=== PATIENT | male | born 1965 | race African-American/Black ===

== ENCOUNTER 2017-10-30 11:31 | Inpatient (IN) | payer OTHER ==
[2017-10-30 11:51] VITALS: BMI 25.4
--- NOTE | 2017-10-30 14:10 | HP ---
CIWA Score - CIWA Score Nausea/Vomitin-No Nausea/No Vomiting Muscle Tremors: 4-Moderate,w/Arms Extend Anxiety: 4-Mod. Anxious/Guarded Agitation: 4-Moderately Restless Paroxysmal Sweats: 2 Orientation: 0-Oriented Tacttile Disturbances: 0-None Auditory Disturbances: 0-None Visual Disturbances: 0-None Headache: 0-None Present CIWA-Ar Total Score: 14 Admission ROS S - HPI Chief Complaint: ALCOHOL WITHDRAWAL SX Allergies/Adverse Reactions: Allergies Allergy/AdvReac Type Severity Reaction Status Date / Time No Known Allergies Allergy Verified 10/30/17 12:16 History of Present Illness: 52 Y/O AA/MALE WITH A HX OF ALCOHOL AND CRACK/COCAINE DEPENDENCE SEEKING DETOX TX. PT STATES HE CAME TO DETOX BECAUSE "I NEED HELP WITH MY ADDICTION". "IF I DON'T DRINK I GET A LOT OF ATTITUDES".PT HAS A HX OF HTN,DM,ASTHMA AND SCHIZOPHRENIA. PT STATES HE GOES TO [facility], [facility] OR [facility] FOR MEDICAL CARE AND GETS HIS MEDICATIONS FROM THE EMERGENCY ROOMS. PT STATES "IWAS TOLD BY [facility] TO GO [place] [address] [place] [address] FOR MY SCHIZOPHRENIA. I HAVEN'T MADE IT THERE YET". Exam Limitations: No Limitations, Clinical Condition - Ebola screening Have you traveled outside of the country in the last 21 days: No (N) Have you had contact with anyone from an Ebola affected area: No Have you been sick,other than usual withdrawal symptoms: No Do you have a fever: No - Review of Systems Constitutional: Changes in sleep EENT: reports: Blurred Vision Respiratory: reports: Shortness of Breath, Wheezing Cardiac: reports: No Symptoms Reported GI: reports: No Symptoms Reported : reports: No Symptoms Reported Musculoskeletal: reports: No Symptoms Reported Integumentary: reports: No Symptoms Reported Neuro: reports: Headache Endocrine: reports: No Symptoms Reported Hematology: reports: No Symptoms Reported Psychiatric: reports: Orientated x3, Anxious, Depressed Other Systems: Reviewed and Negative Patient History - Patient Medical History Hx Anemia: No Hx Asthma: Yes (MDI) Hx Chronic Obstructive Pulmonary Disease (COPD): No Hx Cancer: No Hx Cardiac Disorders: No Hx Congestive Heart Failure: No Hx Hypertension: Yes (NON COMPLIANT- DENIES MEDS) Hx Hypercholesterolemia: No Hx Pacemaker: No HX Cerebrovascular Accident: No Hx Seizures: Yes (2YEARS AGO) Hx Dementia: No Hx Diabetes: Yes (FINGERSTICK 245mg/dL 10/817- ON METFORMIN DAILY) Hx Gastrointestinal Disorders: No Hx Liver Disease: No Hx Genitourinary Disorders: No Hx Sexually Transmitted Disorders: Yes (HX SYPHILIS WITH TX) Hx Renal Disease (ESRD): No Hx Thyroid Disease: No Hx Human Immunodeficiency Virus (HIV): No (NEGATIVE HX 2016) Hx Hepatitis C: No Hx Depression: Yes Hx Suicide Attempt: No (DENIES) Hx Schizophrenia: Yes - Patient Surgical History Past Surgical History: Yes Hx Neurologic Surgery: Yes (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) Hx Cataract Extraction: No Hx Cardiac Surgery: No Hx Lung Surgery: No Hx Breast Surgery: No Hx Breast Biopsy: No Hx Abdominal Surgery: Yes (SPLEENECTOMY AT 5 YRS OLD) Hx Appendectomy: No Hx Cholecystectomy: No Hx Genitourinary Surgery: No Hx Orthopedic Surgery: No Anesthesia Reaction: No - PPD History Previous Implant?: Yes Documented Results: Negative w/proof Date: 10/29/12 PPD to be Administered?: Yes - Reproductive History Patient is a Female of Child Bearing Age (11 -55 yrs old): No (MALE) Patient : No - Smoking Cessation Smoking history: Current every day smoker Have you smoked in the past 12 months: Yes Aproximately how many cigarettes per day: 20 Hx Chewing Tobacco Use: No Initiated information on smoking cessation: Yes 'Breaking Loose' booklet given: 10/30/17 - Substance & Tx. History Hx Alcohol Use: Yes (BACARDI) Hx Substance Use: Yes (CRACK/COCAINE) Substance Use Type: Alcohol, Cocaine Hx Substance Use Treatment: Yes (LAST TX AT [facility]) - Substances Abused Cocaine Route: Smoking Frequency: 3-6 times per week Amount used: $40 Age of first use: 19 Date of Last Use: 10/29/17 ETOH Route: Oral Frequency: Daily Amount used: 3 PINTS- vODKA, 1-2 bEERS Age of first use: 18 Date of Last Use: 10/29/17 Family Disease History - Family Disease History Family Disease History: Diabetes: Mother (), Other: Mother Admission Physical Exam BHS - Vital Signs Vital Signs: Vital Signs - 24 hr 10/30/17 11:48 Temperature 96 F L Pulse Rate 98 H Respiratory 16 Rate Blood Pressure 158/107 - Physical General Appearance: Yes: Moderate Distress, Irritable, Anxious, Other ( AGITATION AND SLEEPY ON OFF. 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, Fully Oriented, Alert, Motor Strength 5/5 Integumentary: Yes: Dry, Warm Lymphatic: Yes: Within Normal Limits - Diagnostic (1) Schizophrenia Current Visit: Yes Status: Chronic (2) Alcohol dependence with uncomplicated withdrawal Current Visit: Yes Status: Acute (3) Cocaine dependence, uncomplicated Current Visit: Yes Status: Acute (4) Asthma Current Visit: Yes Status: Chronic Qualifiers: Asthma severity: unspecified severity Asthma persistence: unspecified Asthma complication type: uncomplicated Qualified Code(s): J45.909 - Unspecified asthma, uncomplicated (5) Hx of seizure disorder Current Visit: Yes Status: Suspected (6) Hypertension Current Visit: Yes Status: Acute Qualifiers: Hypertension type: essential hypertension Qualified Code(s): I10 - Essential (primary) hypertension (7) Diabetes mellitus Current Visit: Yes Status: Acute Qualifiers: Diabetes mellitus type: type 2 (8) Status post brain surgery Current Visit: Yes Status: Resolved (9) S/P splenectomy Current Visit: Yes Status: Resolved Cleared for Admission [facility] - Detox or Rehab S Level of Care: Medically Managed Detox Regimen/Protocol: Librium S Breath Alcohol Content Breath Alcohol Content: 0 Urine Drug Screen - Results Drug Screen Negative: No Urine Drug Screen Results: ADARSH-Cocaine, TCA-Tricyclic Antidepress
[2017-10-30] MEDS ORDERED: P-EPHED 60MG/TRIPROLIDI 2.5MG TABLET PO PRN (14:34)
[2017-10-30] MEDS ORDERED: ACETAMINOPHEN 325 MG TABLET (FP) PO PRN (14:34)
[2017-10-30] MEDS ORDERED: MAGNESIUM CITRATE 300 ML BOTTLE PO PRN (14:34)
[2017-10-30] MEDS ORDERED: MENTHOL/PHENOL 1 EACH UD MM PRN (14:34)
[2017-10-30] MEDS ORDERED: NICOTINE POLACRILEX 4 MG GUM BUC PRN (14:34)
[2017-10-30] MEDS ORDERED: chlordiazePOXIDE HCL 25 MG CAPSULE PO PRN (14:34)
[2017-10-30] MEDS ORDERED: guaiFENesin/D-METHORPHAN HB 10 ML UNIT-DOSE CUPS PO PRN (14:34)
[2017-10-30] MEDS ORDERED: LOPERAMIDE HCL 2 MG CAPSULE PO PRN (14:34)
[2017-10-30] MEDS ORDERED: MAGNESIUM HYDROX 2400MG/30ML ORAL SUSPENSION 30 ML CUP PO PRN (14:34)
[2017-10-30] MEDS ORDERED: MAG HYDROX/AL HYDROX/SIMETH 30 ML UNIT-DOSE CUP PO PRN (14:34)
[2017-10-30] MEDS ORDERED: IBUPROFEN 400 MG TABLET (FP) PO PRN (14:34)
[2017-10-30] MEDS: LISINOPRIL 10 MG TABLET (FP) PO SCH (16:04)
[2017-10-30] MEDS: NICOTINE 21 MG/24 HOURS TOPICAL PATCH TD SCH (16:08)
--- NOTE | 2017-10-30 17:04 | CONSULT ---
[facility] Psychiatric Consult - Data Date of interview: 10/30/17 Admission source: [facility] Identifying data: Patient is a 52 year old single male, father of two, residing in a fpc, and supported by [facility] benefits. This is patient's first admission to detox at [facility]. Pt. admitted to for alcohol and cocaine dependence. Substance Abuse History: Smoking Cessation. Smoking history: Current every day smoker. Have you smoked in the past 12 months: Yes. Aproximately how many cigarettes per day: 20. Hx Chewing Tobacco Use: No. Initiated information on smoking cessation: Yes. 'Breaking Loose' booklet given: 10/30/17. - Substance & Tx. History. Hx Alcohol Use: Yes (BACARDI). Hx Substance Use: Yes (CRACK/ COCAINE). Substance Use Type: Alcohol, Cocaine. Hx Substance Use Treatment: Yes (LAST TX AT [facility]). - Substances Abused. Cocaine. Route: Smoking. Frequency: 3-6 times per week. Amount used: $40. Age of first use: 19. Date of Last Use: 10/29/17. ETOH. Route: Oral. Frequency: Daily. Amount used: 3 PINTS- vODKA, 1-2 bEERS. Age of first use: 18. Date of Last Use : 10/29/17 Medical History: Asthma, hypertension, seizures, diabetes, brain sx due to tumor in 2011- benign, Spleenectomy at 5 y/o Psychiatric History: Patient reports multiple psychiatric hospitalizations, most recently 2 months ago at [facility]. Pt. has also been hospitalized at [facility] and [facility]. Diagnosis of schizophrenia. Pt. denies OPD. States he is prescribed Seroquel 200mg qhs and gets his prescriptions from the emergency room at [facility]. [facility] called at [phone] and pharmacy staff able to confirm patient' s recent prescription of seroquel 200mg qhs on October 20. Patient denies h/o suicide attempt. Physical/Sexual Abuse/Trauma History: Denies. Mental Status Exam - Mental Status Exam Alert and Oriented to: Time, Place, Person Cognitive Function: Good Patient Appearance: Well Groomed Mood: Euthymic Affect: Mood Congruent Patient Behavior: Cooperative Speech Pattern: Appropriate Voice Loudness: Normal Thought Process: Intact, Goal Oriented Thought Disorder: Not Present Hallucinations: Denies Suicidal Ideation: Denies Homicidal Ideation: Denies Insight/Judgement: Poor Sleep: Poorly Appetite: Fair Muscle strength/Tone: Normal Gait/Station: Normal Psychiatric Findings - Problem List ([place] 1, 2,3) (1) Alcohol dependence with uncomplicated withdrawal Current Visit: Yes Status: Acute (2) Cocaine dependence, uncomplicated Current Visit: Yes Status: Acute (3) Schizophrenia Current Visit: Yes Status: Chronic (4) Substance induced mood disorder Current Visit: Yes Status: Acute - Initial Treatment Plan Initial Treatment Plan: Psychoeducation provided. Detoxification in progress. [facility] called at [phone] and pharmacy staff able to confirm patient's recent prescription of seroquel 200mg qhs on October 20. Will order Seroquel 200mg qhs. Benefits and side effects discussed. Verbal consent given.
[2017-10-30 17:48] LABS: URINE APPEARANCE CLEAR; URINE BILIRUBIN NEGATIVE (<2.0 mg/dL); URINE BLOOD NEGATIVE (NEGATIVE); URINE COLOR LTYELLOW; URINE GLUCOSE (UA) 1+ (NEGATIVE); URINE KETONE NEGATIVE (NEGATIVE); URINE LEUK ESTERASE NEGATIVE (NEGATIVE); URINE NITRITE NEGATIVE (NEGATIVE); URINE PROTEIN NEGATIVE (NEGATIVE); URINE UROBILINOGEN NEGATIVE mg/dL (0.2-1.0)
[2017-10-30] MEDS: chlordiazePOXIDE HCL 25 MG CAPSULE PO SCH ×2 (18:04→22:29)
[2017-10-30] MEDS: INSULIN SLIDING SCALE (NOVOLOG) 1 VIAL SQ SCH (18:18)
[2017-10-30] MEDS ORDERED: MELATONIN 5 MG TABLETS PO PRN (22:00)
[2017-10-30] MEDS: THIAMINE HCL 100 MG TABLET (FP) PO SCH (22:29)
[2017-10-30] MEDS: QUEtiapine FUMARATE 200 MG TABLET PO SCH (22:29)
[2017-10-31] MEDS: chlordiazePOXIDE HCL 25 MG CAPSULE PO SCH ×4 (06:06→23:19)
[2017-10-31] MEDS: metFORMIN HCL 500 MG TABLET (FP) PO SCH (06:07)
[2017-10-31] MEDS: INSULIN SLIDING SCALE (NOVOLOG) 1 VIAL SQ SCH ×2 (06:08→17:11)
[2017-10-31] MEDS: PRENATAL VITAMINS W/ FOLIC ACID TABLET (FP) PO SCH (10:39)
[2017-10-31] MEDS: LISINOPRIL 10 MG TABLET (FP) PO SCH (10:39)
[2017-10-31] MEDS: NICOTINE 21 MG/24 HOURS TOPICAL PATCH TD SCH (10:40)
[2017-10-31] MEDS: hydrOXYzine PAMOATE 50 MG CAPSULE (FP) PO PRN (10:40)
[2017-10-31 10:53] LABS: HEMATOCRIT 37.3 % (35.4-49); HEMOGLOBIN 12.1 GM/dL (11.7-16.9); MCH 28.3 pg (25.7-33.7); MCHC 32.5 g/dl (32.0-35.9); MEAN CELL VOLUME 87.3 fl (80-96); MEAN PLT VOLUME 8.7 fl (7.5-11.1); PLATELET COUNT 260 K/MM3 (134-434); RBC 4.27 M/mm3 (4.00-5.60); RDW 15.5 % (11.9-15.9); WHITE BLOOD COUNT 7.3 K/mm3 (4.0-10.0)
[2017-10-31 11:04] LABS: CHLORIDE 103 mmol/L (98-107); POTASSIUM 4.3 mmol/L (3.5-5.1); SODIUM 139 mmol/L (136-145)
[2017-10-31 11:25] LABS: ALBUMIN 3.5 g/dl (3.4-5.0); ALK PHOS 109 U/L (45-117); ANION GAP 7 (8-16); BILIRUBIN,TOTAL 0.3 mg/dL (0.2-1.0); BLOOD UREA NITROGEN 13 mg/dL (7-18); CO2 29 mmol/L (21-32); CREATININE 1.3 mg/dL (0.7-1.3); GLUCOSE,RANDOM 270 mg/dL (74-106); SGOT/AST 16 U/L (15-37); SGPT/ALT 29 U/L (12-78); TOT PROT 7.3 g/dl (6.4-8.2)
--- NOTE | 2017-10-31 11:34 | PN ---
S CIWA - CIWA Score Nausea/Vomitin Muscle Tremors: 3 Anxiety: 3 Agitation: 3 Paroxysmal Sweats: 1-Minimal Palms Moist Orientation: 0-Oriented Tacttile Disturbances: 1-Very Mild Itch/Numbness Auditory Disturbances: 1-Very Mild Visual Disturbances: 0-None Headache: 2-Mild CIWA-Ar Total Score: 17 S Progress Note (SOAP) Subjective: alert,irritable,anxious,interrupted sleep,tremor Objective: 10/31/17 11:30 Vital Signs Temperature 97.7 F 10/31/17 10:25 Pulse Rate 102 H 10/31/17 10:25 Respiratory Rate 16 10/31/17 10:25 Blood Pressure 143/93 10/31/17 10:25 O2 Sat by Pulse Oximetry (%) ekg nsr qt 400/484 no chest pain,no sob,no dizziness Laboratory Last Values WBC 7.3 K/mm3 (4.0-10.0) D 10/31/17 06:00 RBC 4.27 M/mm3 (4.00-5.60) 10/31/17 06:00 Hgb 12.1 GM/dL (11.7-16.9) 10/31/17 06:00 Hct 37.3 % (35.4-49) 10/31/17 06:00 MCV 87.3 fl (80-96) 10/31/17 06:00 MCH 28.3 pg (25.7-33.7) 10/31/17 06:00 MCHC 32.5 g/dl (32.0-35.9) 10/31/17 06:00 RDW 15.5 % (11.9-15.9) D 10/31/17 06:00 Plt Count 260 K/MM3 (134-434) 10/31/17 06:00 MPV 8.7 fl (7.5-11.1) 10/31/17 06:00 Sodium 139 mmol/L (136-145) 10/31/17 06:00 Potassium 4.3 mmol/L (3.5-5.1) 10/31/17 06:00 Chloride 103 mmol/L (98-107) 10/31/17 06:00 Carbon Dioxide 29 mmol/L (21-32) D 10/31/17 06:00 Anion Gap 7 (8-16) L 10/31/17 06:00 BUN 13 mg/dL (7-18) 10/31/17 06:00 Creatinine 1.3 mg/dL (0.7-1.3) D 10/31/17 06:00 Creat Clearance w eGFR 57.53 (>60) 10/31/17 06:00 POC Glucometer 194 UNITS (80-120) 10/31/17 05:31 Random Glucose 270 mg/dL (74-106) H D 10/31/17 06:00 Calcium 9.0 mg/dL (8.5-10.1) 10/31/17 06:00 Total Bilirubin 0.3 mg/dL (0.2-1.0) D 10/31/17 06:00 AST 16 U/L (15-37) D 10/31/17 06:00 ALT 29 U/L (12-78) D 10/31/17 06:00 Alkaline Phosphatase 109 U/L (45-117) 10/31/17 06:00 Total Protein 7.3 g/dl (6.4-8.2) 10/31/17 06:00 Albumin 3.5 g/dl (3.4-5.0) 10/31/17 06:00 Urine Color Ltyellow 10/30/17 17:20 Urine Appearance Clear 10/30/17 17:20 Urine pH 5.0 (5.0-8.0) 10/30/17 17:20 Ur Specific [place] 1.016 (1.001-1.035) 10/30/17 17:20 Urine Protein Negative (NEGATIVE) 10/30/17 17:20 Urine Glucose (UA) 1+ (NEGATIVE) H 10/30/17 17:20 Urine Ketones Negative (NEGATIVE) 10/30/17 17:20 Urine Blood Negative (NEGATIVE) 10/30/17 17:20 Urine Nitrite Negative (NEGATIVE) 10/30/17 17:20 Urine Bilirubin Negative (<2.0 mg/dL) 10/30/17 17:20 Urine Urobilinogen Negative mg/dL (0.2-1.0) 10/30/17 17:20 Ur Leukocyte Esterase Negative (NEGATIVE) 10/30/17 17:20 Assessment: 10/31/17 11:33 withdrawal symptom Plan: continue detox,bgm monitoring
[2017-10-31 12:16] LABS: SICKLE CELL SCREEN NEGATIVE (NEGATIVE)
--- NOTE | 2017-10-31 14:51 | EKG ---
Test Reason : Blood Pressure : / mmHG Vent. Rate : 088 BPM Atrial Rate : 088 BPM P-R Int : 168 ms QRS Dur : 094 ms QT Int : 400 ms P-R-T Axes : 071 030 049 degrees QTc Int : 484 ms NORMAL SINUS RHYTHM POSSIBLE LEFT ATRIAL ENLARGEMENT NONSPECIFIC T WAVE ABNORMALITY PROLONGED QT ABNORMAL ECG NO PREVIOUS ECGS AVAILABLE Confirmed by MD Torres Daniel ([id number]) on 10/31/2017 2:50:39 PM Referred By: Confirmed By:Jose Torres MD
[2017-10-31] MEDS ORDERED: INSULIN (NOVOLOG) ASPART 100 UNITS/ML 10ML VIAL ONE (17:05)
[2017-10-31] MEDS: THIAMINE HCL 100 MG TABLET (FP) PO SCH (23:19)
[2017-10-31] MEDS: QUEtiapine FUMARATE 200 MG TABLET PO SCH (23:19)
[2017-11-01] MEDS ORDERED: INSULIN (NOVOLOG) ASPART 100 UNITS/ML 10ML VIAL ONE ×2 (06:33→17:02)
[2017-11-01] MEDS: chlordiazePOXIDE HCL 25 MG CAPSULE PO SCH ×2 (06:35→10:18)
[2017-11-01] MEDS: metFORMIN HCL 500 MG TABLET (FP) PO SCH (06:35)
[2017-11-01] MEDS: INSULIN SLIDING SCALE (NOVOLOG) 1 VIAL SQ SCH ×2 (06:36→17:17)
[2017-11-01] MEDS: PRENATAL VITAMINS W/ FOLIC ACID TABLET (FP) PO SCH (10:18)
[2017-11-01] MEDS: NICOTINE 21 MG/24 HOURS TOPICAL PATCH TD SCH (10:18)
[2017-11-01] MEDS: hydrOXYzine PAMOATE 50 MG CAPSULE (FP) PO PRN (10:18)
[2017-11-01] MEDS: LISINOPRIL 10 MG TABLET (FP) PO SCH (10:18)
[2017-11-01 12:39] LABS: RPR REACTIVE 1:1 (NONREACTIVE)
[2017-11-01 12:47] LABS: TREPONEMA ANTIBODY REACTIVE (NONREACTIVE)
--- NOTE | 2017-11-01 13:47 | PN ---
S CIWA - CIWA Score Nausea/Vomitin-No Nausea/No Vomiting Muscle Tremors: 4-Moderate,w/Arms Extend Anxiety: 4-Mod. Anxious/Guarded Agitation: 3 Paroxysmal Sweats: 1-Minimal Palms Moist Orientation: 0-Oriented Tacttile Disturbances: 1-Very Mild Itch/Numbness Auditory Disturbances: 0-None Visual Disturbances: 0-None Headache: 0-None Present CIWA-Ar Total Score: 13 BHS Progress Note (SOAP) Subjective: sweat tremor anxiety restlessness irritable Objective: 11/01/17 13:48 Vital Signs Temperature 97.7 F 11/01/17 09:52 Pulse Rate 95 H 11/01/17 09:52 Respiratory Rate 18 11/01/17 09:52 Blood Pressure 150/90 11/01/17 09:52 O2 Sat by Pulse Oximetry (%) Laboratory Last Values WBC 7.3 K/mm3 (4.0-10.0) D 10/31/17 06:00 RBC 4.27 M/mm3 (4.00-5.60) 10/31/17 06:00 Hgb 12.1 GM/dL (11.7-16.9) 10/31/17 06:00 Hct 37.3 % (35.4-49) 10/31/17 06:00 MCV 87.3 fl (80-96) 10/31/17 06:00 MCH 28.3 pg (25.7-33.7) 10/31/17 06:00 MCHC 32.5 g/dl (32.0-35.9) 10/31/17 06:00 RDW 15.5 % (11.9-15.9) D 10/31/17 06:00 Plt Count 260 K/MM3 (134-434) 10/31/17 06:00 MPV 8.7 fl (7.5-11.1) 10/31/17 06:00 Sickle Cell Screen Negative (NEGATIVE) 10/31/17 06:00 Sodium 139 mmol/L (136-145) 10/31/17 06:00 Potassium 4.3 mmol/L (3.5-5.1) 10/31/17 06:00 Chloride 103 mmol/L (98-107) 10/31/17 06:00 Carbon Dioxide 29 mmol/L (21-32) D 10/31/17 06:00 Anion Gap 7 (8-16) L 10/31/17 06:00 BUN 13 mg/dL (7-18) 10/31/17 06:00 Creatinine 1.3 mg/dL (0.7-1.3) D 10/31/17 06:00 Creat Clearance w eGFR 57.53 (>60) 10/31/17 06:00 POC Glucometer 337 UNITS (80-120) 10/31/17 16:30 Random Glucose 270 mg/dL (74-106) H D 10/31/17 06:00 Calcium 9.0 mg/dL (8.5-10.1) 10/31/17 06:00 Total Bilirubin 0.3 mg/dL (0.2-1.0) D 10/31/17 06:00 AST 16 U/L (15-37) D 10/31/17 06:00 ALT 29 U/L (12-78) D 10/31/17 06:00 Alkaline Phosphatase 109 U/L (45-117) 10/31/17 06:00 Total Protein 7.3 g/dl (6.4-8.2) 10/31/17 06:00 Albumin 3.5 g/dl (3.4-5.0) 10/31/17 06:00 Urine Color Ltyellow 10/30/17 17:20 Urine Appearance Clear 10/30/17 17:20 Urine pH 5.0 (5.0-8.0) 10/30/17 17:20 Ur Specific [place] 1.016 (1.001-1.035) 10/30/17 17:20 Urine Protein Negative (NEGATIVE) 10/30/17 17:20 Urine Glucose (UA) 1+ (NEGATIVE) H 10/30/17 17:20 Urine Ketones Negative (NEGATIVE) 10/30/17 17:20 Urine Blood Negative (NEGATIVE) 10/30/17 17:20 Urine Nitrite Negative (NEGATIVE) 10/30/17 17:20 Urine Bilirubin Negative (<2.0 mg/dL) 10/30/17 17:20 Urine Urobilinogen Negative mg/dL (0.2-1.0) 10/30/17 17:20 Ur Leukocyte Esterase Negative (NEGATIVE) 10/30/17 17:20 RPR Titer Reactive 1:1 (NONREACTIVE) H 10/31/17 06:00 T.pallidum Ab (MHA) Reactive (NONREACTIVE) 10/31/17 06:00 lab noted Assessment: 11/01/17 13:49 withdrawal sx Plan: continue detox
[2017-11-01] MEDS: chlordiazePOXIDE 5 MG CAPSULE PO SCH ×2 (17:18→22:36)
[2017-11-01] MEDS: THIAMINE HCL 100 MG TABLET (FP) PO SCH (22:36)
[2017-11-01] MEDS: QUEtiapine FUMARATE 200 MG TABLET PO SCH (22:36)
[2017-11-02] MEDS: chlordiazePOXIDE 5 MG CAPSULE PO SCH ×2 (05:07→10:37)
[2017-11-02] MEDS: metFORMIN HCL 500 MG TABLET (FP) PO SCH (06:32)
[2017-11-02] MEDS: INSULIN SLIDING SCALE (NOVOLOG) 1 VIAL SQ SCH ×2 (07:25→16:35)
[2017-11-02] MEDS ORDERED: INSULIN (NOVOLOG) ASPART 100 UNITS/ML 10ML VIAL ONE (07:54)
[2017-11-02] MEDS: PRENATAL VITAMINS W/ FOLIC ACID TABLET (FP) PO SCH (10:37)
[2017-11-02] MEDS: LISINOPRIL 10 MG TABLET (FP) PO SCH (10:37)
[2017-11-02] MEDS: NICOTINE 21 MG/24 HOURS TOPICAL PATCH TD SCH (10:37)
--- NOTE | 2017-11-02 10:52 | PN ---
S Progress Note (SOAP) Subjective: alert,irritable,anxious,interrupted sleep Objective: 11/02/17 10:51 Vital Signs Temperature 97 F L 11/02/17 09:17 Pulse Rate 102 H 11/02/17 09:17 Respiratory Rate 16 11/02/17 09:17 Blood Pressure 151/95 11/02/17 09:17 O2 Sat by Pulse Oximetry (%) Assessment: 11/02/17 10:51 withdrawal symptom Plan: continue detox,discharge in am
[2017-11-02] MEDS: chlordiazePOXIDE HCL 10 MG CAPSULE PO SCH ×2 (17:53→22:37)
[2017-11-02] MEDS: THIAMINE HCL 100 MG TABLET (FP) PO SCH (22:36)
[2017-11-02] MEDS: QUEtiapine FUMARATE 200 MG TABLET PO SCH (22:37)
[2017-11-03] MEDS: chlordiazePOXIDE HCL 10 MG CAPSULE PO SCH (05:29)
[2017-11-03] MEDS: INSULIN SLIDING SCALE (NOVOLOG) 1 VIAL SQ SCH (06:55)
[2017-11-03] MEDS: metFORMIN HCL 500 MG TABLET (FP) PO SCH (06:55)
[2017-11-03] MEDS ORDERED: INSULIN (NOVOLOG) ASPART 100 UNITS/ML 10ML VIAL ONE (07:03)
--- NOTE | 2017-11-03 08:44 | PN ---
S Progress Note (SOAP) Subjective: alert,no complaint Objective: 11/03/17 08:41 Vital Signs Temperature 97.5 F L 11/03/17 06:00 Pulse Rate 89 11/03/17 06:00 Respiratory Rate 20 11/03/17 06:00 Blood Pressure 136/93 11/03/17 06:00 O2 Sat by Pulse Oximetry (%) Assessment: 11/03/17 08:41 detox completed,no withdrawal symptom Plan: discharge today,follow up with after care program as arrangement
--- NOTE | 2017-11-03 08:50 | DS ---
[facility] Detox Discharge Summary Admission Date: 10/30/17 Discharge Date: 11/03/17 - History Present History: Alcohol Dependence, Cocaine Dependence Additional Comments: follow up with after care program as arrangement Pertinent Past History: asthma hypertension dm s/p brain surgery s/p slenectomy schizophrenia seizure disorder - Physical Exam Results Vital Signs: Vital Signs Temperature 97.5 F L 11/03/17 06:00 Pulse Rate 89 11/03/17 06:00 Respiratory Rate 20 11/03/17 06:00 Blood Pressure 136/93 11/03/17 06:00 O2 Sat by Pulse Oximetry (%) Pertinent Admission Physical Exam Findings: withdrawal signs and symptom Vital Signs Temperature 97.5 F L 11/03/17 06:00 Pulse Rate 89 11/03/17 06:00 Respiratory Rate 20 11/03/17 06:00 Blood Pressure 136/93 11/03/17 06:00 O2 Sat by Pulse Oximetry (%) Laboratory Last Values WBC 7.3 K/mm3 (4.0-10.0) D 10/31/17 06:00 RBC 4.27 M/mm3 (4.00-5.60) 10/31/17 06:00 Hgb 12.1 GM/dL (11.7-16.9) 10/31/17 06:00 Hct 37.3 % (35.4-49) 10/31/17 06:00 MCV 87.3 fl (80-96) 10/31/17 06:00 MCH 28.3 pg (25.7-33.7) 10/31/17 06:00 MCHC 32.5 g/dl (32.0-35.9) 10/31/17 06:00 RDW 15.5 % (11.9-15.9) D 10/31/17 06:00 Plt Count 260 K/MM3 (134-434) 10/31/17 06:00 MPV 8.7 fl (7.5-11.1) 10/31/17 06:00 Sickle Cell Screen Negative (NEGATIVE) 10/31/17 06:00 Sodium 139 mmol/L (136-145) 10/31/17 06:00 Potassium 4.3 mmol/L (3.5-5.1) 10/31/17 06:00 Chloride 103 mmol/L (98-107) 10/31/17 06:00 Carbon Dioxide 29 mmol/L (21-32) D 10/31/17 06:00 Anion Gap 7 (8-16) L 10/31/17 06:00 BUN 13 mg/dL (7-18) 10/31/17 06:00 Creatinine 1.3 mg/dL (0.7-1.3) D 10/31/17 06:00 Creat Clearance w eGFR 57.53 (>60) 10/31/17 06:00 POC Glucometer 241 UNITS (80-120) 11/03/17 05:28 Random Glucose 270 mg/dL (74-106) H D 10/31/17 06:00 Calcium 9.0 mg/dL (8.5-10.1) 10/31/17 06:00 Total Bilirubin 0.3 mg/dL (0.2-1.0) D 10/31/17 06:00 AST 16 U/L (15-37) D 10/31/17 06:00 ALT 29 U/L (12-78) D 10/31/17 06:00 Alkaline Phosphatase 109 U/L (45-117) 10/31/17 06:00 Total Protein 7.3 g/dl (6.4-8.2) 10/31/17 06:00 Albumin 3.5 g/dl (3.4-5.0) 10/31/17 06:00 Urine Color Ltyellow 10/30/17 17:20 Urine Appearance Clear 10/30/17 17:20 Urine pH 5.0 (5.0-8.0) 10/30/17 17:20 Ur Specific [place] 1.016 (1.001-1.035) 10/30/17 17:20 Urine Protein Negative (NEGATIVE) 10/30/17 17:20 Urine Glucose (UA) 1+ (NEGATIVE) H 10/30/17 17:20 Urine Ketones Negative (NEGATIVE) 10/30/17 17:20 Urine Blood Negative (NEGATIVE) 10/30/17 17:20 Urine Nitrite Negative (NEGATIVE) 10/30/17 17:20 Urine Bilirubin Negative (<2.0 mg/dL) 10/30/17 17:20 Urine Urobilinogen Negative mg/dL (0.2-1.0) 10/30/17 17:20 Ur Leukocyte Esterase Negative (NEGATIVE) 10/30/17 17:20 RPR Titer Reactive 1:1 (NONREACTIVE) H 10/31/17 06:00 T.pallidum Ab (MHA) Reactive (NONREACTIVE) 10/31/17 06:00 - Treatment Hospital Course: Detox Protocol Followed, Detoxed Safely, Responded well, Discharged Condition Good Patient has Accepted a Rehab Referral to: declined - Medication Discharge Medications: Ambulatory Orders Quetiapine Fumarate [SEROquel] 200 mg PO HS 07/16/11 Metformin HCl [Glucophage] 500 mg PO DAILY 10/30/17 - Diagnosis (1) Alcohol dependence with uncomplicated withdrawal Current Visit: Yes Status: Acute (2) Cocaine dependence, uncomplicated Current Visit: Yes Status: Acute (3) Asthma Current Visit: Yes Status: Chronic Qualifiers: Asthma severity: unspecified severity Asthma persistence: unspecified Asthma complication type: uncomplicated Qualified Code(s): J45.909 - Unspecified asthma, uncomplicated (4) Diabetes mellitus Current Visit: Yes Status: Chronic Qualifiers: Diabetes mellitus type: type 2 (5) Hypertension Current Visit: Yes Status: Chronic Qualifiers: Hypertension type: essential hypertension Qualified Code(s): I10 - Essential (primary) hypertension (6) Schizophrenia Current Visit: Yes Status: Chronic (7) Hx of seizure disorder Current Visit: Yes Status: Suspected - AMA Did Patient Leave Against Medical Advice: No
[2017-11-03 09:25] VITALS: BP 146/97; PULSE 110; TEMP 97.7
--- NOTE | 2017-11-03 10:58 | PN ---
[facility] Progress Note Note: Psychiatric nurse practitioner note: Library Monitor approached patient for psychiatric nurse practitioner. Library Monitor made aware that patient was discharged this morning.
== END 2017-11-03 09:38 | disposition home or self-care (01) | DRG 774 ==
LOC: YASAS 11:31 → Y6N 14:48
PROVIDERS: ADMIT Surgery; ATTEND Surgery
PROC: HZ2ZZZZ Detoxification Services for Substance Abuse Treatment (ICD-10-PCS; principal; 2017-10-30)
DX: F10.230 Alcohol dependence with withdrawal, uncomplicated (principal); F14.20 Cocaine dependence, uncomplicated; F17.210 Nicotine dependence, cigarettes, uncomplicated; F19.24 Other psychoactive substance dependence with psychoactive substance-induced mood disorder; F20.9 Schizophrenia, unspecified; J45.909 Unspecified asthma, uncomplicated; E11.9 Type 2 diabetes mellitus without complications; I10 Essential (primary) hypertension; Z87.438 Personal history of other diseases of male genital organs; Z91.14 Patient's other noncompliance with medication regimen; Z86.69 Personal history of other diseases of the nervous system and sense organs; Z90.81 Acquired absence of spleen; Z79.84 Long term (current) use of oral hypoglycemic drugs; Z85.841 Personal history of malignant neoplasm of brain
CPT/HCPCS: 36415; 80053; 81003; 82962; 85027; 85660; 86593; 86780; 93005; 93010